=== PATIENT | male | born 1960 | race Caucasian/White ===

== ENCOUNTER 2018-02-18 11:16 | Emergency (ER) | payer OTHER ==
[2018-02-18 11:16] VITALS: BMI 29.5
[2018-02-18 11:25] VITALS: O2SAT 98
[2018-02-18] MEDS ORDERED: Sodium Chloride 0.9% 1,000 ML IV STA ×2 (12:19→13:38)
[2018-02-18 12:48] LABS: BASO # 0.1 K/uL (0.0-0.2); BASO % 0.9 % (0.0-2.0); EOS # 0.3 K/uL (0.0-0.7); EOS % 2.9 % (0.0-4.0); HEMOGLOBIN 15.2 g/dL (12.0-18.0); LYMPH # 1.9 K/uL (1.0-4.3); LYMPH % 18.7 % (20.0-40.0); MEAN CORPUSCULAR HEMOGLOBIN 31.6 pg (27.0-31.0); MEAN CORPUSCULAR HGB CONC 34.7 g/dL (33.0-37.0); MEAN PLATELET VOLUME 7.9 fL (7.2-11.7); MONO # 0.8 K/uL (0.0-0.8); MONO % 7.3 % (0.0-10.0); NEUT # 7.3 K/uL (1.8-7.0); NEUT % 70.2 % (50.0-75.0); RBC 4.8 Mil/uL (4.40-5.90); RED CELL DISTRIBUTION WIDTH 13.7 % (11.5-14.5); WHITE BLOOD COUNT 10.4 K/uL (4.8-10.8)
[2018-02-18 13:04] LABS: ALB/GLOB RATIO 1.3 (1.0-2.1); ALT/SGPT 22 U/L (21-72); AST/SGOT 19 U/L (17-59); BLOOD UREA NITROGEN 18 mg/dL (9-20); CALCIUM 9.6 mg/dl (8.6-10.4); GFR NON-AFRICAN AMERICAN > 60
--- NOTE | 2018-02-18 14:06 | C.PDOC ---
History Of Present Illness 57 y/o male with PMHx of diabetes presents to the ED complaining of pain and blisters to the soles of bilateral feet, onset 2-3 days ago. States he had similar symptoms in the past, was admitted to [facility] [place], and treated with some unknown antibacterial medication and cream with improvement. Denies walking barefoot outside or with open shoes. Time Seen by Provider: 02/18/18 12:01 Chief Complaint (Nursing): Abnormal Skin Integrity History Per: Patient History/Exam Limitations: no limitations Onset/Duration Of Symptoms: Days Current Symptoms Are (Timing): Still Present Location Of Injury: Right: Foot, Left: Foot Quality Of Symptoms: Painful Past Medical History Reviewed: Historical Data, Nursing Documentation, Vital Signs Vital Signs: Last Vital Signs Temp 97.7 F 02/18/18 15:16 Pulse 74 02/18/18 15:16 Resp 18 02/18/18 15:16 BP 109/72 02/18/18 15:16 Pulse Ox 98 02/18/18 15:16 - Medical History PMH: Diabetes, HTN, Hypercholesterolemia Denies: Chronic Kidney Disease Surgical History: Coronary Stent (X1) - [employer] Procedures CLOSED ENDOSCOPIC BIOPSY OF LARGE INTESTINE (01/23/14) ENDO EXCISION/DEST OF LESION OR TISSUE OF STOMACH (03/19/15) Family History: States: Unknown Family Hx - Social History Hx Tobacco Use: Yes Hx Alcohol Use: No Hx Substance Use: No - Immunization History Hx Tetanus Toxoid Vaccination: No Hx Influenza Vaccination: No Hx Pneumococcal Vaccination: No Review Of Systems Except As Marked, All Systems Reviewed And Found Negative. Constitutional: Negative for: Fever, Chills, Sweats Cardiovascular: Negative for: Chest Pain Respiratory: Negative for: Shortness of Breath Gastrointestinal: Negative for: Vomiting, Abdominal Pain Musculoskeletal: Positive for: Foot Pain Skin: Positive for: Rash (red blisters to soles of both feet) Neurological: Negative for: Weakness, Numbness, Incoordination Physical Exam - Physical Exam Appears: Non-toxic, No Acute Distress Skin: Warm, Dry Head: Atraumatic, Normacephalic Eye(s): bilateral: Normal Inspection Nose: Normal Oral Mucosa: Moist Neck: Normal ROM Chest: Symmetrical Cardiovascular: Rhythm Regular, No Murmur Respiratory: Normal Breath Sounds, No Accessory Muscle Use, No Rhonchi, No Wheezing Gastrointestinal/Abdominal: Soft, No Tenderness, No Distention Extremity: Normal ROM, Capillary Refill (less than 2 sec), No Deformity, No Swelling, Other (Bilateral feet: erythematous base plantar aspect with multiple shapes of blisters, some of which appear small linear and clustering; some are larger; some large confluent areas, no open sores, no drainage, no swelling, no warmth) Pulses: Left Dorsalis Pedis: Normal, Right Dorsalis Pedis: Normal Neurological/Psych: Oriented x3, Normal Speech, Normal Motor, Normal Sensation ED Course And Treatment - Laboratory Results Result Diagrams: 02/18/18 12:40 02/18/18 12:40 O2 Sat by Pulse Oximetry: 98 (RA) Pulse Ox Interpretation: Normal Progress Note: Ordered labs and podiatry consult. Patient started on IV fluids. Podiatry resident came to evaluate patient in the ER, discussed case with Podiatry attending Dr. Ching and recommends treating with one dose of IV Rocephin. States the etiology may be fungal or bacterial. Blood and wound cultures sent. Patient will be discharged home with prescriptions for Augmentin , Ketoconazole cream, and Topicort cream. Advised to return to the ER for onset of fever or worsening symptoms. As per podiatry resident, patient will follow up in the office with Dr. Ching. Patient agrred with the plan. Disposition - Disposition Referrals: Juliocesar Ching DPM [Staff Provider] - Disposition: HOME/ ROUTINE Disposition Time: 13:59 Condition: GOOD Additional Instructions: FOLLOW UP WITH ELECTRICAL PANEL BUILDER WITHIN 2-3 DAYS. RETURN TO ED IMMEDIATELY IF FEEL WORSE OR IF NOT BETTER IN 2-3 DAYS. Prescriptions: Amoxicillin/Clavulanate [Augmentin 875 MG-125 MG] 1 tab PO BID #20 tab Ketoconazole 2% Cr [Nizoral] 1 applic TOP BID 30 Days #45 g Desoximetasone 0.05% [Topicort Lp] 1 appl TP BID 7 Days #1 tube Instructions: Diabetes and Infections Forms: [facility] (Spanish) - Clinical Impression Clinical Impression: Foot infection - PA / WARP TESTER / Resident Statement MD/DO has reviewed & agrees with the documentation as recorded. - Scribe Statement The provider has reviewed the documentation as recorded by the Scribe (Macrina Eden) All medical record entries made by the Scribe were at my direction and personally dictated by me. I have reviewed the chart and agree that the record accurately reflects my personal performance of the history, physical exam, medical decision making, and the department course for this patient. I have also personally directed, reviewed, and agree with the discharge instructions and disposition.
[2018-02-18 14:20] VITALS: RESP 18
--- NOTE | 2018-02-18 14:44 | CP.PCM.CON ---
History of Present Illness - History of Present Illness History of Present Illness: Podiatry Consult note for Dr. Greco 57M with PMH DM, HTN, high cholestertol and Cardiac stent 2009 [facility] [place] presents to ED with b/l blistering of plantar feet. Patient states that he first noticed the blistering yesterday morning. He states that he had a similar occurence two months ago with the blistering appearing on his hands as well. He states that he was given antibiotics and steroids at that time which helped. Patient is unable to bear weight because his feet hurt too badly when he walks. He denies walking barefoot outside in the last several days. Denies any known allergies. States that feet were itchy before the blisters broke out. He denies having blisters anywhere else on his body at this time. Denies any recent travel outside of the country. Denies any recent changes to medications. Denies any known instances of blistering occurring in his immediate family. Denies any further pedal complaints at this time. Denies any recent N/V/F/C/CP/SOB/D Review of Systems - Review of Systems All systems: reviewed and no additional remarkable complaints except Review of Systems: as per HPI Past Patient History - Past Medical History & Family History Past Medical History?: Yes - Past Social History Smoking Status: Never Smoked - CARDIAC Hx Hypercholesterolemia: Yes Hx Hypertension: Yes - PULMONARY Hx Respiratory Disorders: No - NEUROLOGICAL Hx Neurological Disorder: No - HEENT Hx HEENT Problems: Yes (READING GLASSES) - RENAL Hx Chronic Kidney Disease: No - ENDOCRINE/METABOLIC Hx Endocrine Disorders: Yes Hx Diabetes Mellitus Type 2: Yes - HEMATOLOGICAL/ONCOLOGICAL Hx Blood Disorders: No - INTEGUMENTARY Hx Dermatological Problems: No - MUSCULOSKELETAL/RHEUMATOLOGICAL Hx Musculoskeletal Disorders: No - GASTROINTESTINAL Hx Gastrointestinal Disorders: Yes (ABDOMINAL PAIN, NAUSEA, GASSY) - GENITOURINARY/GYNECOLOGICAL Hx Genitourinary Disorders: No - PSYCHIATRIC Hx Substance Use: No - SURGICAL HISTORY Hx Coronary Stent: Yes (X1) - ANESTHESIA Hx Anesthesia: Yes Hx Anesthesia Reactions: No Hx Malignant Hyperthermia: No Meds Home Medications: Home Medication List Medication Instructions Recorded Confirmed Type Amoxicillin/Clavulanate [Augmentin 1 tab PO BID #20 tab 02/18/18 Rx 875 MG-125 MG] Desoximetasone 0.05% [Topicort Lp] 1 appl TP BID 7 Days #1 tube 02/18/18 Rx Ketoconazole 2% Cr [Nizoral] 1 applic TOP BID 30 Days #45 g 02/18/18 Rx Allergies/Adverse Reactions: Allergies Allergy/AdvReac Type Severity Reaction Status Date / Time No Known Allergies Allergy Verified 02/18/18 11:25 - Medications Medications: Current Medications Ceftriaxone Sodium 1 gm/ (Sodium Chloride) 100 mls @ 100 mls/hr IVPB ONCE ONE PRN Reason: Protocol Stop: 02/18/18 14:59 Last Admin: 02/18/18 14:05 Dose: 100 mls/hr Physical Exam - Constitutional Appears: Well, Non-toxic, No Acute Distress - Extremities Exam Additional comments: B/l LE focused exam Vasc: DP/PT pulses fully palpable 2/4 b/l. Skin temperature warm to warm WNL. CFT < 3 seconds to all digits b/l. No edema noted to b/l feet Neuro: Epicritic and protective sensation grossly intact b/l Derm: Multiple, tense bullae of varying sizes filled with yellow/clear fluid noted to b/l plantar feet. No blistering noted to patient's hands. Erythema noted exclusively to plantar feet surrounding blisters. Otherwise, no open lesions, wounds, maceration, xerosis, abnormal pigmentation or abnormal growths noted MSK: Severe POP to plantar bullae. ROM to all major joints WNL. MMT 5/5 in all major muscle groups - Neurological Exam Neurological exam: Alert, Oriented x3 - Psychiatric Exam Psychiatric exam: Normal Affect, Normal Mood Results - Vital Signs Recent Vital Signs: Last Vital Signs Temp 98.2 F 02/18/18 14:18 Pulse 66 02/18/18 14:18 Resp 18 02/18/18 14:18 BP 108/75 02/18/18 14:18 Pulse Ox 98 02/18/18 14:22 - Labs Result Diagrams: 02/18/18 12:40 02/18/18 12:40 Labs: Laboratory Results - last 24 hr 02/18/18 02/18/18 12:40 12:40 WBC 10.4 RBC 4.80 Hgb 15.2 Hct 43.7 MCV 91.0 MCH 31.6 H MCHC 34.7 RDW 13.7 Plt Count 179 MPV 7.9 Neut % (Auto) 70.2 Lymph % (Auto) 18.7 L Hitchcock % (Auto) 7.3 Eos % (Auto) 2.9 Baso % (Auto) 0.9 Neut # (Auto) 7.3 H Lymph # (Auto) 1.9 Hitchcock # (Auto) 0.8 Eos # (Auto) 0.3 Baso # (Auto) 0.1 Sodium 136 Potassium 4.8 Chloride 98 Carbon Dioxide 28 Anion Gap 16 BUN 18 Creatinine 0.9 Est GFR ( Amer) > 60 Est GFR (Non-Af Amer) > 60 Random Glucose 348 H Calcium 9.6 Total Bilirubin 0.6 AST 19 ALT 22 Alkaline Phosphatase 90 Total Protein 7.1 Albumin 4.0 Globulin 3.1 Albumin/Globulin Ratio 1.3 Assessment & Plan - Assessment and Plan (Free Text) Assessment: 57M seen for multiple bullae on plantar aspect of both feet Plan: Patient seen and evaluated Plan discussed with Dr. Greco Afebrile, absent leukocytosis Patient given stat does of Rocephin All bullae lanced but not deroofed which provided patient with great deal of relief Fluid within the bullae cultured Both feet dressed with DSD Rx Augmentin Rx Topicort Rx Ketoconazole Patient to f/u with Dr. Greco in his office - Date & Time Date: 02/18/18 Time: 14:55
[2018-02-18 15:19] VITALS: BP 109/72; PULSE 74; TEMP 97.7
== END 2018-02-18 15:25 | disposition home or self-care (01) ==
LOC: C.ER 11:16
DX: R23.8 Other skin changes (principal)
CPT/HCPCS: 80053; 85025; 87040; 87070; 87181; 96361; 96365; 99284; J0696; J7030

== ENCOUNTER 2018-09-30 14:25 | Outpatient (CLI) | payer OTHER | END 2018-09-30 14:26 | disposition home or self-care (01) | LOC: C.LAB 14:25 ==

== ENCOUNTER 2018-11-08 07:04 | Day surgery (SDC) | payer OTHER ==
[2018-11-07 14:17] VITALS: BMI 30.1
--- NOTE | 2018-11-08 07:27 | CP.SDSHP ---
<Em Dumont - Last Filed: 11/08/18 07:25> Same Day Surgery H & P - History Proposed Procedure: colonoscopy Pre-Op Diagnosis: lower abd pain. bloating. change in stool caliber. colon cancer screening - Previous Medical/Surgical History Cardiac: Hypertension, ASHD/CAD Endocrine/Metabolic: Diabetes Misc: Other (hyperlipidemia) - Allergies Allergies: Allergies No Known Allergies Allergy (Verified 11/07/18 14:17) - Current Medications Current Medications: atenolol asa janumet glimepide atorvastatin losartan - Physical Exam General Appearance: no acute distress Mental Status: Alert & Oriented x3 Neuro: WNL Heart: WNL Lungs: WNL - {Optional Preform as Required} Abdomen: WNL - Impression Impression: lower abd pain. bloating. change in stool caliber. colon cancer screening Pt. Evaluated Today:Candidate for Anesthesia & Procedure: Yes - Date & Time Date: 11/08/18 Time: 07:15 Short Stay Discharge - Short Stay Discharge Admitting Diagnosis/Reason for Visit: ENCOUNTER FOR SCREENING FOR MALIGNANT NEOPLASM OF Disposition: HOME/ ROUTINE <Rock Gunter - Last Filed: 11/08/18 08:09> Same Day Surgery H & P - Allergies Allergies: Allergies No Known Allergies Allergy (Verified 11/07/18 14:17) - Physical Exam Vital Signs: Vital Signs 11/08/18 07:30 Temperature 97.0 F L Pulse Rate 73 Respiratory 19 Rate Blood Pressure 136/80 O2 Sat by Pulse 99 Oximetry Attending/Attestation - Attestation I have personally seen and examined this patient.: Yes I have fully participated in the care of the patient.: Yes I have reviewed all pertinent clinical information: Yes Notes (Text): 11/08/18 08:09 For screening colonoscopy Risks/benefits discussed and understood and accepted
[2018-11-08] MEDS ORDERED: Lactated Ringer's 500 ML IV ONE (07:57)
[2018-11-08 08:14] VITALS: RESP 14
[2018-11-08 09:17] VITALS: TEMP 97.5
[2018-11-08 10:50] VITALS: BP 124/67; PULSE 65; O2SAT 99
== END 2018-11-08 10:15 | disposition home or self-care (01) ==
LOC: C.ENDO 07:04
PROVIDERS: ATTEND Internal Medicine Gastroenterology
DX: Z12.11 Encounter for screening for malignant neoplasm of colon (principal); D12.7 Benign neoplasm of rectosigmoid junction; K62.1 Rectal polyp; D12.5 Benign neoplasm of sigmoid colon; K64.1 Second degree hemorrhoids; I10 Essential (primary) hypertension; I25.10 Atherosclerotic heart disease of native coronary artery without angina pectoris; E11.9 Type 2 diabetes mellitus without complications; E78.49 Other hyperlipidemia; Z79.82 Long term (current) use of aspirin; Z79.899 Other long term (current) drug therapy; Z79.84 Long term (current) use of oral hypoglycemic drugs; Z95.5 Presence of coronary angioplasty implant and graft
CPT/HCPCS: 45380; 45385; 82948; 88305; J7120